=== PATIENT | male | born 1980 | race Caucasian/White ===

== ENCOUNTER 2025-06-02 17:36 | Emergency (ER) | payer BC, SELFPAY ==
[2025-06-02 17:51] VITALS: BP 162/110; PULSE 66; RESP 16; TEMP 36.4; O2SAT 98
--- NOTE | 2025-06-02 17:58 | ED.GENADULT ---
HPI - General Adult General Chief complaint: Headache Stated complaint: Headache/R Foot Pain Time Seen by Provider: 06/02/25 18:03 Source: patient Mode of arrival: ambulatory Limitations: no limitations History of Present Illness HPI narrative: 44 year old male presents with 2 concerns. He reports he has had right foot pain for about 2 months, he denies any injury or trauma in the foot. He does report an old right MCL injury for which he takes meloxicam. He reports he notices the pain most in the morning and in the evening after he settles down for the day, reports the pain is focused around digits 2 and 3 of the foot and extends slightly into the dorsal foot. He has not taken any medication for this foot pain. He denies redness, warmth, swelling. He also reports chronic sinus pain. Reports it is intermittent but for the last 2 weeks it is been constant. MD complaint: Headache and foot pain Related Data Home Medications ?Medication ?Instructions ?Recorded ?Confirmed ?Last Taken ?Type meloxicam 7.5 mg tablet 7.5 mg PO DAILY 06/02/25 06/02/25 Unknown History Allergies Allergy/AdvReac Type Severity Reaction Status Date / Time No Known Allergies Allergy Verified 06/02/25 17:49 Review of Systems Review of Systems: CONSTITUTIONAL: Denies malaise, chills, sweats, or fever. EYES: Denies visual changes, redness, or discharge. ENT: Reports rhinorrhea, congestion, sinus pain CARDIOVASCULAR: Denies chest pain, palpitations, or edema. RESPIRATORY: Denies cough or dyspnea. SKIN: Denies redness, warmth MUSCULOSKELETAL: Reports right foot pain NEUROLOGIC: Reports headache. All systems reviewed & are unremarkable except as noted in HPI and below PMFSH Comments At time of signature, agree with nursing past medical, surgical, social and family history. There is no relevant family history pertinent to the presenting complaint Exam Narrative: GENERAL: Well-appearing, well-nourished, and in no acute distress. HEAD: Normocephalic, atraumatic. EYES: PERRLA, sclera clear, and EOMI. No nystagmus. ENT: Nares clear. Mucous membranes moist. TM pearly restrepo with sharp light reflex bilaterally; no tragal tenderness. Oropharynx without erythema or lesions. Tonsils not enlarged and without exudate. NECK: Supple. CHEST: No respiratory distress. Clear to auscultation. No bony deformities, no asymmetry. Speaks in full sentences. HEART: Regular rate and rhythm. No murmur heard. Normal peripheral pulses. ABDOMEN: Soft, nontender, nondistended, normal active bowel sounds, no palpable masses. EXTREMITIES: Grossly Normal range of motion. Grossly No edema. Grossly Normal strength and sensation. SKIN: Warm, dry, no visible rash. NEURO: Alert and oriented x3. PSYCH: Normal mood and affect Course Course Emergency Course: Patient is aware of diagnosis, understands and agrees to treatment plan. Anticipatory guidance given. Patient agrees to follow-up as directed and is aware of reasons to seek care at the emergency department. Portions of this record may have been created with voice recognition software Level of Care: [facility] Visit Vital Signs Vital signs: Vital Signs Temperature 97.5 F L 06/02/25 17:51 Pulse Rate 66 06/02/25 17:51 Respiratory Rate 16 06/02/25 17:51 Blood Pressure 162/110 H 06/02/25 17:51 Pulse Oximetry 98 06/02/25 17:51 Temperature 97.5 F L 06/02/25 17:51 Pulse Rate 66 06/02/25 17:51 Respiratory Rate 16 06/02/25 17:51 Blood Pressure 162/110 H 06/02/25 17:51 Pulse Oximetry 98 06/02/25 17:51 Reviewed. Medical Decision Making MDM Narrative Medical decision making narrative: The patient was evaluated by myself in the [facility]. History is obtained from patient who is an independent historian and physical exam was performed.? Available medical records were reviewed at this time. ? Exam findings show no acute concerns or changes; patient is non-toxic appearing and is in no distress. Patient is appropriate for outpatient treatment and follow-up. ? I have evaluated and discussed social determinants of health with the patient that could potentially impact subsequent diagnosis and treatment plans. I will treat patient today for sinus infection given his symptoms for 2 weeks of sinus pain, drainage, pressure. I advised patient to start antihistamine daily and evaluate symptoms thereafter. Patient has not had injury to the foot, patient was advised follow-up with primary for further evaluation of his foot pain. ? Differential diagnosis and treatment plan were discussed with the patient. Patient agrees with discussion and after shared medical decision making agrees with plan of care. All questions were answered to the patient's satisfaction. Vital Signs Vital Signs: Vital Signs Temperature 97.5 F L 06/02/25 17:51 Pulse Rate 66 06/02/25 17:51 Respiratory Rate 16 06/02/25 17:51 Blood Pressure 162/110 H 06/02/25 17:51 Pulse Oximetry 98 06/02/25 17:51 Temperature 97.5 F L 06/02/25 17:51 Pulse Rate 66 06/02/25 17:51 Respiratory Rate 16 06/02/25 17:51 Blood Pressure 162/110 H 06/02/25 17:51 Pulse Oximetry 98 06/02/25 17:51 Critical Care Time Critical Care Time Critical Care Time: No Discharge Plan Discharge Clinical Impression: Sinusitis, Foot pain, right Patient Disposition: Home Condition: Stable Instructions: Antibiotic Form, Sinusitis (ED) Additional Instructions: Sinusitis: Take medication as prescribed Antihistamine such as Zyrtec during the day and Benadryl at night Nonprescription pain medications, such as acetaminophen (eg, Tylenol) or ibuprofen (eg, Motrin, Advil), are recommended for pain. Flushing the nose and sinuses with a saline solution several times per day has been proven to decrease pain associated with congestion and shorten the duration of symptoms. Nasal steroids (such as Flonase, 2 sprays in each nostril daily) can help to reduce swelling inside the nose, usually within two to three days. These drugs have few side effects and relieve symptoms in most people. Oral decongestants (pseudoephedrine and phenylephrine) may be helpful if you have associated symptoms of ear pain or fullness. Medications to thin secretions (such as guaifenesin) may help to clear mucus. Please follow-up with your primary care doctor in the next 1-2 days. If you cannot follow-up with your primary care doctor please go to the ED for any urgent issues. If you have any worsening of symptoms or any other concerns please go to the ED immediately. Foot pain: Avoid activities that cause pain until the pain subsides. Ice to the area 20-30 minutes 4-6 times a day Elevate above heart Tylenol for pain Follow up with your primary care provider if the condition is not improving within 1 week. If the condition worsens with numbness, tingling, decrease sensation with weakness seek treatment in the emergency room immediately. Patient Language: Maori Prescriptions: New prednisone 20 mg tablet 40 mg PO DAILY 5 Days Qty: 10 0RF amoxicillin-pot clavulanate 875-125 mg tablet 1 tablet PO Q12H 10 Days Qty: 20 0RF No Action meloxicam 7.5 mg tablet 7.5 mg PO DAILY Follow-up/Referrals: Marni Babb DO [Physician, Family Practice] PHYSICIAN,GRANULIZING MACHINE OPERATOR [Primary Care Provider, Internal Medicine] Stand Alone Forms: Work/School Release IP Time of Disposition: 18:10
== END 2025-06-02 18:30 | disposition home or self-care (01) ==
PROVIDERS: Emergency Provider Nurse Practitioner
DX: J32.9 Chronic sinusitis, unspecified (principal); M79.671 Pain in right foot
CPT/HCPCS: 99203; G0463